=== PATIENT | female | born 1965 | race African-American/Black ===

== ENCOUNTER 2017-01-29 06:04 | Day surgery (SDC) | payer OTHER ==
[~2017-01-29] VITALS: Ht 170.2 cm; Wt 88.5 kg
[2017-01-29] VITALS (9 sets, daily range): BP systolic 113–125; BP diastolic 67–85
[~2017-01-29 06:04] MED LIST: ATIVAN1 MG ORAL; EFFEXOR XR75 MG ORAL; UNOBMED
[2017-01-29] MEDS ORDERED: Propofol 10mg/ml 20ml IV ONE (06:05)
[2017-01-29] MEDS ORDERED: Sterile Water Irrig 1000ml IRRIG ONE (06:05)
[2017-01-29] MEDS ORDERED: fentaNYL 100 mcg/2 mL IV ONE (06:05)
[2017-01-29] MEDS ORDERED: LR 1000ml ONE (06:05)
[2017-01-29] MEDS ORDERED: Ketorolac 30mg Inj ONE (06:05)
[2017-01-29] MEDS ORDERED: Midazolam 2mg/2ml Inj ONE (06:05)
[2017-01-29] MEDS ORDERED: Bacitracin Oint 15gm Tube TOPIC ONE (07:02)
[2017-01-29] MEDS ORDERED: Dexamethasone 4mg/ml vial ONE (07:02)
[2017-01-29] MEDS ORDERED: Lidocaine 1% Plain 30 ml INJ ONE (07:03)
[2017-01-29] MEDS ORDERED: Bupivacaine 0.5% Inj 30 ml vial INJ ONE (07:03)
[2017-01-29] MEDS ORDERED: LR 1000ml 1,000 ML IVLG SCH (07:25)
--- NOTE | 2017-01-29 07:25 | Anethesia Preoperative Eval ---
Anesthesia Pre-op PMH/ROS General Date of Evaluation: Jan 29, 2017 Time of Evaluation: 07:22 Anesthesiologist: Samantha ASA Score: ASA 2 Mallampati Score Class I : Soft palate, uvula, fauces, pillars visible Class II: Soft palate, uvula, fauces visible Class III: Soft palate, base of uvula visible Class IV: Only hard plate visible Mallampati Classification: Class II Surgeon: Ana María Diagnosis: R foot bunion Surgical Procedure: R foot bunionectomy Anesthesia History: none Social History: current smoker Family History: no anesthesia problems Allergies: Coded Allergies: CODEINE (Verified Allergy, Severe, 01/28/17) PASSES OUT SULFA (SULFONAMIDE ANTIBIOTICS) (Verified Allergy, Severe, 01/28/17) hives,itching,boils ERYTHROMYCIN BASE (Verified Allergy, Unknown, 01/28/17) DO NOT REMEMBER REACTION Medications: see eMAR Past Medical History Cardiovascular: Denies: CAD, HTN, OR, arrhythmia, other, valve dz Pulmonary: Denies: COPD, MERY, asthma, other Gastrointestinal/Genitourinary: Reports: GERD, Denies: CRI, ESRD, other Neurologic/Psychiatric: Reports: depression/anxiety, Denies: CVA, TIA, dementia, other Endocrine: Denies: DM, hypothyroidism, other, steroids [place]: Denies: [place] (L), [place] (R), cataract (L), cataract (R), glaucoma, other Hematology/Immune: Denies: DVT, anemia, bleeding disorder, other Musculoskeletal/Integumentary: Denies: DDD, DJD, OA, RA, edema, other Other: other - overweight PMH Narrative: as above PSxH Narrative: hysterectomy Anesthesia Pre-op Phys. Exam Physician Exam Last Vital Signs Date Time Temp Pulse Resp B/P Pulse Ox O2 Delivery O2 Flow Rate FiO2 01/29/17 07:08 97.6 72 18 115/80 100 Room Air Constitutional: NAD Neurologic: CN 2-12 intact Cardiovascular: RRR, no M/R/G Respiratory: CTA Gastrointestinal: S/NT/ND Airway Exam Mallampati Score: Class II MO: full Neck: flexible ROM: full Teeth: intact Dentures: no lower, no upper Anesthesia Pre-op A/P Labs see chart Studies Pre-op Studies: EKG - NSR Risk Assessment & Plan Assessment: ASA 2 Plan: GA with LMA patients request Status Change Before Surgery: No Pre-Antibiotics Drug: Ancef 1gr. Given Within 1 Hr of Incision: Yes Time Given: 07:55 LIZBETH VINCENT M.D. Jan 29, 2017 07:25
[2017-01-29] MEDS ORDERED: Midazolam 2mg/2ml Inj IVP PRN (07:30)
[2017-01-29] MEDS ORDERED: Ketorolac 30mg Inj IV PRN (07:30)
[2017-01-29] MEDS ORDERED: Hydromorphone 0.5mg/0.5ml inj IVP PRN (07:30)
[2017-01-29] MEDS ORDERED: DiphenhydrAMINE 50mg/ml Inj IVP PRN (07:30)
[2017-01-29] MEDS ORDERED: Meperidine 25mg/0.5ml Inj (FOR RIGORS ONLY) IV PRN (07:30)
[2017-01-29] MEDS ORDERED: Metoclopramide 10mg/2ml Inj IVP PRN (07:30)
--- NOTE | 2017-01-29 07:39 | Pre-Procedure Note/Attestation ---
Pre-Procedure Note/Attestation Complete Prior to Procedure Procedure Narrative: bunionectomy right foot Hammertoe correction third right digit Indications for Procedure Pre-Operative Diagnosis: Hallux valgus with bunion deformity right foot Hammertoe third right digit Attestation I attest that I discussed the nature of the procedure; its benefits; risks and complications; and alternatives (and the risks and benefits of such alternatives ), prior to the procedure, with the patient (or the patient's legal patient service representative). I attest that, if there was a reasonable possibility of needing a blood transfusion, the patient (or the patient's legal patient service representative) was given the [facility] standardized written summary, pursuant to the Mustapha Sravani Blood Safety Act ([place] Health and Safety Code # 1645, as amended). I attest that I re-evaluated the patient just prior to the surgery and that there has been no change in the patient's H&P, except as documented below: DAWIT LEES Jan 29, 2017 07:38
--- NOTE | 2017-01-29 08:46 | Brief Operative Note ---
Immediate Post Operative Note Operative Note Pre-op Diagnosis: Hallux valgus with bunion deformity right foot Hammertoe third right digit Procedure: Bunionectomy right foot Hammertoe correction third right digit Post-op Diagnosis: same as pre-op Surgeon: Ana María Anesthesiologist: Samantha Specimen: yes Complications: none Condition: stable Estimated Blood Loss: none Drains: none Implant(s) used?: No DAWIT LEES Jan 29, 2017 08:46
--- NOTE | 2017-01-29 08:58 | Immediate Post-Op Evaluation ---
Immediate Post-Op Evalulation Immediate Post-Op Evalulation Procedure: R foot bunionectomy Date of Evaluation: Jan 29, 2017 Time of Evaluation: 08:55 IV Fluids: 800 Blood Products: none Estimated Blood Loss: min Urinary Output: none Blood Pressure Systolic: 122 Blood Pressure Diastolic: 88 Pulse Rate: 76 Respiratory Rate: 22 O2 Sat by Pulse Oximetry: 99 Temperature (Fahrenheit): 97.6 Pain Score (1-10): 2 Nausea: No Vomiting: No Patient Status: awake, patent Hydration Status: adequate LIZBETH VINCENT M.D. Jan 29, 2017 08:58
--- NOTE | 2017-01-29 11:35 | Diagnostic Imaging Report ---
Indication: POST-OP, status post bunionectomy and osteotomy Technique: 3 views right foot Comparison: none Findings: Patient is status post bunionectomy. Small amount of gas is seen within the soft tissues adjacent to the first metatarsal, presumably retained air from the surgical exposure. Is a small plantar spur. Patient is status post third middle phalangeal osteotomy. Acute fractures. Impression: Postsurgical changes, as described. No unusual features
--- NOTE | 2017-01-29 12:15 | History and Physical Report ---
DATE OF ADMISSION: 01/29/2017 HISTORY OF PRESENT ILLNESS: The patient is a 51-year-old, , who is admitted today for an outpatient surgery of her right foot. The patient has been under my care since September of this year for pain from her right foot bunion and hammertoe. The patient has noted that she had tried to modify her shoe gear and pad her foot without any relief of symptoms and she elected to proceed with surgery. PAST MEDICAL HISTORY: Remarkable for depression. MEDICATIONS: Effexor. ALLERGIES: Sulfa, erythromycin, and codeine. PODIATRIC PHYSICAL EXAMINATION: VASCULAR: Dorsalis pedis and posterior tibial arteries are measuring 2/4 bilaterally. The capillary filling time is less than 4 seconds to all digits bilaterally. Homans sign is negative. No varicosities are noted in bilateral lower extremities. Skin is warm to touch. NEUROLOGICAL: Examination, the reflexes Achilles and patellar are measuring 2/4 equal and symmetrical bilaterally. Sensation, proprioception, and vibration sensation are all intact bilateral lower extremity. Clonus is absent. Babinski is negative bilaterally. MUSCULOSKELETAL: Examination there is hallux of abductovalgus with bunion deformity of the right foot. The hallux is abutting the second digit right foot. Joint range of motion of the first metatarsophalangeal joint is slightly reduced. No crepitation is noted. There is also nonreducible hammertoe deformity of the third right digit. The joints range of motion of the midtarsal joints and subtalar joint and ankle joint bilaterally is full and without any pain. DERMATOLOGICAL: Examination reveals erythema over the proximal interphalangeal joint and distal interphalangeal joint of the third right digit. No ulcerations scars or dermatological lesions noted bilaterally. All nails are present and healthy bilaterally. ASSESSMENT: 1. Hallux abductovalgus with bunion deformity, right foot. 2. Hammertoe deformity, third right digit. PLAN: The patient is admitted today for bunionectomy of her right foot and hammertoe correction. Third digits right foot, risk, complications and alternative treatments were discussed with the patient. Postoperative medication was dispensed to the patient. Postop instructions were also given. The patient elected to proceed with surgery. Alfonso Gotti D.P.M. DR: RUBEN JOB#: [id number] CC:
--- NOTE | 2017-01-29 12:45 | Operative Note - Dictated ---
DATE OF OPERATION: 01/29/2017 SURGEON: Alfonso Gotti D.P.M. ANESTHESIOLOGIST: Yazan Singh M.D. ANESTHESIA: Local standby. PREOPERATIVE DIAGNOSES: 1. Hallux abductovalgus with bunion deformity, right foot. 2. Hammertoe deformity, third right digit. POSTOPERATIVE DIAGNOSES: 1. Hallux abductovalgus with bunion deformity, right foot. 2. Hammertoe deformity, third right digit. PROCEDURE PERFORMED: 1. Modified Johnson bunionectomy, right foot. 2. Arthroplasty, distal interphalangeal joint, third right digit. DESCRIPTION OF OPERATION: The patient was brought to the operating room and was placed on the operating room table in a supine position. Intravenous sedation was administered by the anesthesiologist. Local anesthesia consisting of 0.5% Marcaine plain, a total of 20 mL was administered to the right foot. An ankle tourniquet was applied to the right lower extremity. The foot was prepped and draped in the usual sterile manner. An Esmarch bandage was utilized to exsanguinate the blood and the right ankle tourniquet was inflated to 250 mmHg. Attention was directed to the right hallux where an approximately 5 cm dorsal linear skin incision was centered over the first metatarsophalangeal joint. The incision was deepened utilizing sharp and blunt dissection with care being taken to cauterize and ligate all bleeders. At the level of the capsule, an inverted L type capsulotomy was performed. The capsule was reflected medially and laterally and the head of the first metatarsal was exposed. Utilizing a sagittal saw, the medial eminence was resected in total. The remaining bone was rasped smooth. The wound was copiously flushed utilizing sterile saline. At this point, a lateral release utilizing a 67 blade was performed and the hallux was brought into the rectus position. At this point, the capsule was reapproximated utilizing 3-0 Vicryl in a simple interrupted type stitch. The skin was to be subcutaneous tissue was then reapproximated utilizing 4-0 Vicryl in a buried knot type stitch. The skin was then reapproximated utilizing 4-0 nylon in a simple interrupted type stitch. Attention was then directed to the third right digit to converging semi elliptical incisions were centered over the dorsal aspect of the distal interphalangeal joint. The skin was resected in total. The tendon was then cut transversely utilizing 15 blade and the tendon was exposed proximally. The head of the intermediate phalanx was then exposed utilizing a sagittal saw. The head of the intermediate phalanx was resected in total. The remaining bone was rasped smooth. The wound was copiously flushed utilizing sterile saline. The extensor tendon was then reapproximated utilizing 4-0 Vicryl in a simple interrupted type stitch. The skin was then reapproximated utilizing 4-0 nylon in a simple interrupted type stitch. The wound was dressed utilizing an Adaptic 4 x 4 gauze and 3 inch Nabor. The right ankle tourniquet was deflated and vascular supply was noted to all digits, right foot. The patient tolerated the procedure well and left the operating room to recovery room with all vital signs stable. lAfonso Gotti D.P.M. DR: JANNETH JOB#: [id number] CC:
[2017-02-02 14:15] VITALS: BP 128/56
--- NOTE | 2017-02-02 14:15 | 48 Hour Post Anesthesia Eval ---
Post Anesthesia Evaluation Procedure: R foot bunionectomy Date of Evaluation: Jan 29, 2017 Time of Evaluation: 11:05 Blood Pressure Systolic: 128 0: 56 Pulse Rate: 68 Respiratory Rate: 20 Temperature (Fahrenheit): 97.6 O2 Sat by Pulse Oximetry: 98 Airway: patent Nausea: No Vomiting: No Pain Intensity: 2 Hydration Status: adequate Cardiopulmonary Status: stable Mental Status/LOC: patient returned to baseline Follow-up Care/Observations: n/a Post-Anesthesia Complications: none Follow-up care needed: ready to discharge LIZBETH VINCENT M.D. Feb 02, 2017 14:15
== END 2017-01-29 11:05 | disposition home or self-care (01) ==
LOC: SUR 06:04
DX: M20.11 Hallux valgus (acquired), right foot (principal); M21.611 Bunion of right foot; M20.41 Other hammer toe(s) (acquired), right foot; K21.9 Gastro-esophageal reflux disease without esophagitis; F32.9 Major depressive disorder, single episode, unspecified; F41.9 Anxiety disorder, unspecified; E66.3 Overweight; Z68.31 Body mass index [BMI] 31.0-31.9, adult; Z88.5 Allergy status to narcotic agent; Z88.3 Allergy status to other anti-infective agents; Z88.2 Allergy status to sulfonamides; Z90.710 Acquired absence of both cervix and uterus
CPT/HCPCS: 28285; 28292; 73630; 97161; J0690; J1100; J1885; J2250; J2405; J2704; J3010; J3490; J7120; 94003; 94150